=== PATIENT | male | born 1960 | race Caucasian/White ===

== ENCOUNTER 2016-05-01 14:12 | Emergency (ER) ==
[2016-05-01 14:15] VITALS: BP 164/84; TEMP 96.1; BMI 35.4
--- NOTE | 2016-05-01 16:19 | ED.PDOC ---
General ED Provider: Dr. DANISHA HERNANDEZ JR Chief Complaint: Abdominal Pain Stated Complaint: sudden onset of lower abd pain and back pain. denies any injury or blood in urine [End]since this morning 96.1 81 16 98% 164/84 7/10 aching sharp suprapubic Time Seen by Physician: 16:24 Mode of Arrival: Walk-In Information Source: Patient Exam Limitations: No limitations Nursing and Triage Documentation Reviewed and Agree: No Review of Systems - Review Of Systems Constitutional: Reports: No symptoms Eyes: Reports: No symptoms Ears, Nose, Mouth, Throat: Reports: No symptoms Respiratory: Reports: No symptoms Cardiac: Reports: No symptoms GI: Reports: Abdomen distended ((usual per patient) : Reports: Frequency, Flank pain, Pain. Denies: Burning, Dysuria Musculoskeletal: Reports: Back pain Skin: Reports: No symptoms Neurological: Reports: No symptoms Endocrine: Reports: No symptoms Hematologic/Lymphatic: Reports: No symptoms All Other Systems: Other Past Medical History - Past Medical History Endocrine: Reports: None Cardiovascular: Reports: Hypertension Respiratory: Reports: None Hematological: Reports: None Gastrointestinal: Reports: None Genitourinary: Reports: Kidney stones ([address] guerrero referred to dr clarke for urolithiasis) Neuro/Psych: Reports: None Musculoskeletal: Reports: None Cancer: Reports: None - Surgical History General Surgical History: Reports: None - Family History Family History: Reports: Unknown - Social History Smoking Status: Never smoker Hx Substance Use: No Alcohol Screening: Occasionally Physical Exam - Physical Exam Appearance: Well-appearing, Obese Pain Distress: Moderate Eyes: ANNETTA, EOMI, Conjunctiva clear ENT: Ears normal, Nose normal, Oropharynx normal Neck: Supple Respiratory: Airway patent, Breath sounds clear, Breath sounds equal, Respirations nonlabored Cardiovascular: RRR, Pulses normal, No rub, No murmur GI/: Soft, Tender (right suprapubic) Musculoskeletal: Normal strength, ROM intact, No edema, No calf tenderness Skin: Warm, Dry, Normal color Neurological: Sensation intact, Motor intact, Reflexes intact, Cranial nerves intact, Alert, Oriented Psychiatric: Affect appropriate, Mood appropriate Interpretation - Radiology Interpretation Radiology Interpretation By: Radiologist Radiology Results: Negative Exam Interpreted: CT Scan (abdomen-note changes of t&Lspine(chronic)) Critical Care Note - Critical Care Note Total Time (mins): 0 Course - Course Hematology/Chemistry: 05/01/16 16:22 05/01/16 16:22 Orders, Labs, Meds: Lab Review 05/01/16 05/01/16 16:19 16:22 WBC 14.20 H RBC 4.79 Hgb 14.4 Hct 41.8 L MCV 87.3 MCH 30.1 MCHC 34.4 RDW Coeff of Mikki 12.2 Plt Count 205 Immature Gran % (Auto) 0.3 Neut % (Auto) 86.5 Lymph % (Auto) 3.9 L Crisp % (Auto) 8.6 Eos % (Auto) 0.6 Baso % (Auto) 0.1 Immature Gran # (Auto) 0.0 Neut # 12.3 H Lymph # 0.6 Crisp # 1.2 Eos # 0.1 Baso # 0.0 Sodium 139 Potassium 4.1 Chloride 107 Carbon Dioxide 26 Anion Gap 10.1 BUN 20 H Creatinine 0.95 Estimated GFR (MDRD) 82.00 BUN/Creatinine Ratio 21.05 Glucose 96 Calcium 9.0 Total Bilirubin 1.34 H AST 24 ALT 31 Alkaline Phosphatase 43 L Total Protein 6.9 Albumin 4.1 Globulin 2.8 Albumin/Globulin Ratio 1.46 Amylase 64 Lipase 28 Urine Color Yellow Urine Clarity Clear Urine pH 5.5 Ur Specific [place] 1.020 Urine Protein Negative Urine Glucose (UA) Negative Urine Ketones Negative Urine Blood Negative Urine Nitrite Negative Urine Bilirubin Negative Urine Urobilinogen 0.2 Ur Leukocyte Esterase Negative H. pylori IgG Antibody Negative Orders Category Date Time Status ED IV/MEDIPORT/POWERPORT .ONCE EMERGENCY 05/01/16 16:18 Active ED IV/MEDIPORT/POWERPORT .ONCE EMERGENCY 05/01/16 16:25 Active IV [ED IV/MEDIPORT/POWERPORT] .ONCE EMERGENCY 05/01/16 16:25 Active Strain Urine [ED STRAIN URINE] .ONCE EMERGENCY 05/01/16 16:24 Active AMYLASE Stat LAB 05/01/16 16:22 Completed CBC W/ AUTO DIFF Stat LAB 05/01/16 16:22 Completed COMPREHENSIVE METABOLIC PANEL Stat LAB 05/01/16 16:22 Completed H. PYLORI SCREEN Stat LAB 05/01/16 16:22 Completed LIPASE Stat LAB 05/01/16 16:22 Completed URINALYSIS C & S IF INDICATED Stat LAB 05/01/16 16:19 Completed 0.9 % Sodium Chloride [Saline Flush] MEDS 05/01/16 16:18 Discontinued 1 syr IVF PRN PRN 0.9 % Sodium Chloride [Saline Flush] MEDS 05/01/16 16:25 Discontinued 1 syr IVF PRN PRN Ketorolac Tromethamine [Toradol] MEDS 05/01/16 16:25 Discontinued 30 mg IVP ONCE STA CT ABDOMEN/PELVIS WO CONTRAST Stat RADS 05/01/16 16:18 Completed Medications Discontinued Medications Generic Name Dose Route Start Last Admin Trade Name Marianne PRN Reason Stop Dose Admin Ketorolac Tromethamine 30 mg 05/01/16 16:25 05/01/16 16:49 Toradol IVP 05/01/16 16:26 30 mg ONCE STA Administration Sodium Chloride 1 syr 05/01/16 16:18 Saline Flush IVF PRN PRN To flush IV Sodium Chloride 1 syr 05/01/16 16:25 05/01/16 16:49 Saline Flush IVF 1 syr PRN PRN Administration To flush IV Vital Signs: Temp Pulse Resp BP Pulse Ox 05/01/16 14:12 96.1 F L 81 16 164/84 H 98 Departure - Departure Time of Disposition: 18:06 Disposition: HOME SELF-CARE Discharge Problem: Abdominal pain Instructions: Acute Abdominal Pain (ED) Condition: Good Pt referred to PMD for follow-up: Yes Additional Instructions: Naprosyn for pain increase fluids for next three days at least 8-10 eight ounce cups a day expect resolution in 3 days recheck PMD one to two weeks noncontrast CT was negative- no stones on exam urine negative white count was elevated at 14,200 bilirubin is slightly elevated recommend recheck labs if indicated Allergies/Adverse Reactions: Allergies No Known Allergies Allergy (Verified 05/01/16 14:15) Home Medications: Ambulatory Orders Omeprazole [Prilosec] 20 mg PO DAILY 12/27/12 Aspirin [Aspirin Chewable] 81 mg PO DAILYWM 05/01/16 Fish Oil/Dha/Epa [Fish Oil 1,200 mg Fish Oil] 2 each PO DAILY 05/01/16 Glucosamine HCl 1,500 mg PO DAILY 05/01/16 Metoprolol Tartrate [Lopressor] 25 mg PO DAILY 05/01/16 Multivitamin 1 cap PO DAILY 05/01/16
[2016-05-01] MEDS ORDERED: TORADOL IVP STA (16:25)
[2016-05-01 16:35] LABS: BASOPHILS % (AUTO) 0.1 % (0.0-3.0); EOSINOPHILS # (AUTO) 0.1 K/ul (0.0-0.7); EOSINOPHILS % (AUTO) 0.6 % (0.0-7.0); HEMATOCRIT 41.8 % (42.0-52.0); HEMOGLOBIN 14.4 g/dl (14.0-18.0); IMMATURE GRANULOCYTE % (AUTO) 0.3 % (0.0-5.0); LYMPHOCYTES # (AUTO) 0.6 K/uL (0.60-3.4); LYMPHOCYTES % (AUTO) 3.9 (10.0-50.0); MEAN CORPUSCULAR HEMOGLOBIN 30.1 pg (27.0-31.0); MEAN CORPUSCULAR HGB CONC 34.4 (31.8-35.4); MEAN CORPUSCULAR VOLUME 87.3 fl (80.0-94.0); MONOCYTES # (AUTO) 1.2 K/uL (0.4-2.0); MONOCYTES % (AUTO) 8.6 (0-10); NEUTROPHILS # (AUTO) 12.3 K/ul (2.0-6.9); NEUTROPHILS % (AUTO) 86.5; PLATELET COUNT 205 10^3/uL (140-440); RED BLOOD COUNT 4.79 10^6/ul (4.70-6.10)
[2016-05-01 16:38] LABS: H. PYLORI ANTIBODY NEGATIVE (NEGATIVE); H.PYLORI INTERNAL QC INTERNAL QC VALID
[2016-05-01 16:54] LABS: BILIRUBIN,URINE Negative (NEGATIVE); KETONES,URINE Negative (NEGATIVE); LEUKOCYTE ESTERASE ,URINE Negative (NEGATIVE); NITRITE,URINE Negative (NEGATIVE); PH,URINE 5.5 (5-9); PROTEIN,URINE Negative (NEGATIVE); URINE, BLOOD Negative (NEGATIVE)
[2016-05-01 16:55] LABS: ALBUMIN 4.1 g/dL (3.4-5.0); ALBUMIN/GLOBULIN RATIO 1.46; ANION GAP 10.1; BILIRUBIN,TOTAL 1.34 mg/dL (0.00-1.20); BUN/CREATININE RATIO 21.05; CREATININE 0.95 mg/dL (0.60-1.10); POTASSIUM 4.1 mmol/L (3.5-5.1); TOTAL PROTEIN 6.9 g/dL (6.4-8.2)
[2016-05-01 17:00] LABS: ADD URINE MICROSCOPIC NO
--- NOTE | 2016-05-01 17:07 | CT ---
EXAM: Noncontrast CT examination of the abdomen and pelvis. Comparison: 12/27/2012. Reason for study: Abdominal pain. FINDINGS: Examination is somewhat limited by lack of intravenous and oral contrast. Nonspecific region of pleural thickening in the left posterior inferior upper lobe best seen on axia l image 8. Otherwise, no pneumothorax, pleural effusion, or focal consolidation. The heart is not en larged. The liver, spleen, pancreas, gallbladder, and adrenal glands are unremarkable. Chronic appearing inflammatory changes are seen in the perinephric fat. There is no hydronephrosis, hydroureter, or nephrolithiasis seen on the os examination. The bladder is smoothly marginated wit hout bladder calculus. There is no focal bowel wall dilatation or transition point. The appendix is partially air-filled a nd not enlarged without evidence of periappendiceal stranding. There is a small fat containing periumbilical hernia. 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 There is mild degenerative disease of the lumbosacral spine with anterior listhesis of L4 on L3 a nd anterior osteophytosis is seen throughout the lower thoracic and lumbar spine. IMPRESSION: No acute intra-abdominal or pelvic findings are seen within the limitations of a noncon trast examination.
== END 2016-05-01 18:20 | disposition home or self-care (01) ==
LOC: ED 14:12
DX: R10.30 Lower abdominal pain, unspecified (principal); M54.9 Dorsalgia, unspecified; I10 Essential (primary) hypertension; D72.829 Elevated white blood cell count, unspecified; E80.7 Disorder of bilirubin metabolism, unspecified; R35.0 Frequency of micturition; Z87.442 Personal history of urinary calculi
CPT/HCPCS: 36415; 80053; 81001; 82150; 83690; 85025; 86677; 96375; 99283

== ENCOUNTER 2016-11-13 00:38 | Emergency (ER) ==
[2016-11-13 00:45] VITALS: BP 151/78; TEMP 99.3; BMI 35.2
--- NOTE | 2016-11-13 01:04 | ED.PDOC ---
General ED Provider: Dr. MIKE BURLESON Chief Complaint: Sore Throat Stated Complaint: Sore throat since yesterday. States hurts all the way down the throat to epigastric area. He states he cannot eat or sleep. Time Seen by Physician: 01:01 Mode of Arrival: Walk-In Information Source: Patient Exam Limitations: No limitations Nursing and Triage Documentation Reviewed and Agree: Yes EENT Complaint Exam - Throat Complaint/Exam Onset/Duration: 2 days Symptoms Are: Still present Timimg: Intermittent Initial Severity: Moderate Current Severity: Moderate Aggravating: Reports: Eating Associated Signs and Symptoms: Denies: Fever, Dysphagia, Drooling, Foreign body sensation, Chills, Cough, Wheezing, Hoarseness, Sinus discomfort, Nasal congestion, Difficulty breathing, Lethargy, Irritability, Decreased activity, Vomiting, Diarrhea, Decreased hearing, Ear drainage Uvula Midline: No Carlita-tonsillar Fluctuence: No Scarlatinaform Rash Present: No Lesions: Absent: Lip, Gums, Tongue, Buccal Mucosa, Pharynx Exanthem: Absent: Lip, Gums, Tongue, Buccal Mucosa, Pharynx Vesicles: Absent: Lip, Gums, Tongue, Buccal Mucosa, Pharynx Stridor Present: No Sinus Tenderness Present: No Tonsillar Hypertrophy Present: No Tonsillar Exudate Present: No Carlita-tonsillar Swelling Present: No Adenopathy Present: No Splenomegaly Present: No Differential Diagnoses: Pharyngitis, URI Quality Indicators for Non-Traumatic CP and Syncope: EKG performed Review of Systems - Review Of Systems Constitutional: Reports: No symptoms Eyes: Reports: No symptoms Ears, Nose, Mouth, Throat: Reports: Mouth pain, Throat pain Respiratory: Reports: No symptoms Cardiac: Reports: No symptoms GI: Reports: No symptoms : Reports: No symptoms Musculoskeletal: Reports: No symptoms Skin: Reports: No symptoms Neurological: Reports: No symptoms Endocrine: Reports: No symptoms Hematologic/Lymphatic: Reports: No symptoms All Other Systems: Reviewed and Negative Past Medical History - Past Medical History Endocrine: Reports: None Cardiovascular: Reports: Hypertension Respiratory: Reports: None Hematological: Reports: None Gastrointestinal: Reports: None Genitourinary: Reports: Kidney stones ([address] guerrero referred to dr clarke for urolithiasis) Neuro/Psych: Reports: None Musculoskeletal: Reports: None Cancer: Reports: None - Surgical History General Surgical History: Reports: None - Family History Family History: Reports: Unknown - Social History Smoking Status: Former smoker Hx Substance Use: No Alcohol Screening: None - Immunizations Tetanus Shot up to Date: Yes Physical Exam - Physical Exam Appearance: Well-appearing, Ill-appearing, Well-nourished Ill-appearing: Mild Pain Distress: Mild Eyes: ANNETTA, EOMI, Conjunctiva clear ENT: Erythema Respiratory: Airway patent, Breath sounds clear, Breath sounds equal, Respirations nonlabored Cardiovascular: RRR, Pulses normal, No rub, No murmur GI/: Soft, Nontender, No masses, Bowel sounds normal, No Organomegaly Musculoskeletal: Normal strength, ROM intact, No edema, No calf tenderness Skin: Warm, Dry, Normal color Neurological: Sensation intact, Motor intact, Reflexes intact, Cranial nerves intact, Alert, Oriented Psychiatric: Anxious Critical Care Note - Critical Care Note Total Time (mins): 0 Course - Course Orders, Labs, Meds: Orders Category Date Time Status STREP SCREEN Stat LAB 11/13/16 00:47 Ordered Vital Signs: Temp Pulse Resp BP Pulse Ox 11/13/16 00:39 99.3 F 83 18 151/78 H 98 Departure - Departure Time of Disposition: 01:05 Disposition: HOME SELF-CARE Discharge Problem: Pharyngitis Instructions: Pharyngitis (ED) Condition: Fair Pt referred to PMD for follow-up: Yes Additional Instructions: Take medications as prescribed. Follow up with PCP in 3 days. Prescriptions: Cephalexin [Keflex] 500 mg PO Q8HR #30 capsule Allergies/Adverse Reactions: Allergies No Known Allergies Allergy (Verified 11/13/16 00:45) Home Medications: Ambulatory Orders Omeprazole [Prilosec] 20 mg PO DAILY 12/27/12 Aspirin [Aspirin Chewable] 81 mg PO DAILYWM 05/01/16 Fish Oil/Dha/Epa [Fish Oil 1,200 mg Fish Oil] 2 each PO DAILY 05/01/16 Glucosamine HCl 1,500 mg PO DAILY 05/01/16 Metoprolol Tartrate [Lopressor] 25 mg PO DAILY 05/01/16 Multivitamin 1 cap PO DAILY 05/01/16 Cephalexin [Keflex] 500 mg PO Q8HR #30 capsule 11/13/16 Disposition Discussed With: Patient, Family
[2016-11-13] MEDS ORDERED: TYLENOL PO STA (01:12)
[2016-11-13] MEDS ORDERED: LIDOCAINE VISCOUS 2% 15 ML UD MUCOUSMEMB STA (01:28)
== END 2016-11-13 01:48 | disposition home or self-care (01) ==
LOC: ED 00:38
DX: J02.9 Acute pharyngitis, unspecified (principal)
CPT/HCPCS: 87651; 87880; 99283